=== PATIENT | male | born 1975 | race Caucasian/White ===

== ENCOUNTER 2016-07-27 15:04 | Emergency (ER) | payer MEDICAID, OTHER ==
--- NOTE | 2016-07-27 15:55 | C.PDOC ---
History Of Present Illness 41 y/o male presents to the ED with complains of left knee pain. Pt states he was moving furniture yesterday and has since had knee pain, 6/10 with associated swelling. Denies trauma or injury. Patient took motrin this morning with minimal relief. Denies headache, fever, chills, weakness, numbness or any other complaints. Time Seen by Provider: 07/27/16 15:36 Chief Complaint (Nursing): Lower Extremity Problem/Injury History Per: Patient History/Exam Limitations: no limitations Onset/Duration Of Symptoms: Hrs Current Symptoms Are (Timing): Still Present Severity: Moderate Pain Scale Rating Of: 6 Recent travel outside of the [place]: No - Knee Alleviating Factor(s): OTC Pain Medication Past Medical History Reviewed: Historical Data, Nursing Documentation, Vital Signs - Medical History PMH: Asthma, Diabetes - [facility] Procedures OTHER SKIN & SUBQ I D (10/17/14) Family History: States: Unknown Family Hx - Social History Hx Tobacco Use: No Hx Alcohol Use: No Hx Substance Use: No - Immunization History Hx Tetanus Toxoid Vaccination: No Hx Influenza Vaccination: Yes Hx Pneumococcal Vaccination: No Review Of Systems Except As Marked, All Systems Reviewed And Found Negative. Constitutional: Negative for: Fever, Chills Musculoskeletal: Positive for: Other (left knee pain and swelling) Neurological: Negative for: Weakness, Numbness, Headache Physical Exam - Physical Exam Appears: Non-toxic, No Acute Distress Skin: Warm, Dry, No Rash Head: Atraumatic, Normacephalic Extremity: Normal ROM, Tenderness (mild tenderness to medial aspect left knee), Capillary Refill (<2 seconds), No Deformity, Other (walking with limp) Neurological/Psych: Oriented x3, Normal Motor, Normal Sensation Medical Decision Making Medical Decision Making: No indication or fracture or dislocation. Gave motrin, tylenol and work note. Disposition Counseled Patient/Family Regarding: Diagnosis, Need For Followup, Rx Given - Disposition Disposition: HOME/ ROUTINE Disposition Time: 15:53 Condition: STABLE Instructions: [facility] (ED) Forms: General Discharge Instructions, Work Excuse - POA Present On Arrival: None - Clinical Impression Clinical Impression: Joint pain, Left knee sprain - Scribe Statement The provider has reviewed the documentation as recorded by the Pollo Skinner Provider Attestation: All medical record entries made by the Scribe were at my direction and personally dictated by me. I have reviewed the chart and agree that the record accurately reflects my personal performance of the history, physical exam, medical decision making, and the department course for this patient. I have also personally directed, reviewed, and agree with the discharge instructions and disposition.
== END 2016-07-27 16:00 | disposition home or self-care (01) ==
LOC: C.ER 15:04
DX: S83.92XA Sprain of unspecified site of left knee, initial encounter (principal); X58.XXXA Exposure to other specified factors, initial encounter; M25.562 Pain in left knee

== ENCOUNTER 2016-07-29 12:09 | Emergency (ER) | payer OTHER ==
[2016-07-29 13:03] VITALS: BMI 32.4
[2016-07-29 13:04] VITALS: RESP 18
--- NOTE | 2016-07-29 13:59 | C.PDOC ---
History Of Present Illness A 41 year old male presents to the ER c/o left knee pain that occurred 3 days ago. Patient reports lifting heavy objects, twisting motion to his knee and felt pain afterwards. Patient notes taking medications for the pain this morning. Pain worsens with movement. Patient denies nausea, fever, vomiting, change in sensation or weakness, calf tenderness, direct trauma, or any other complaints. Time Seen by Provider: 07/29/16 13:03 Chief Complaint (Nursing): Lower Extremity Problem/Injury History Per: Patient History/Exam Limitations: no limitations Onset/Duration Of Symptoms: Days Current Symptoms Are (Timing): Still Present Severity: Mild Additional History Per: Patient - Knee Description Of Injury: Other (Lifting heavy object) Past Medical History Reviewed: Historical Data, Nursing Documentation, Vital Signs Vital Signs: Last Vital Signs Temp 98.1 F 07/29/16 13:03 Pulse 76 07/29/16 13:03 Resp 18 07/29/16 13:03 BP 133/71 07/29/16 13:03 Pulse Ox 98 07/29/16 14:06 - Medical History PMH: Asthma, Diabetes - [facility] Procedures OTHER SKIN & SUBQ I D (10/17/14) Family History: States: Unknown Family Hx - Social History Hx Tobacco Use: No Hx Alcohol Use: No Hx Substance Use: No - Immunization History Hx Tetanus Toxoid Vaccination: No Hx Influenza Vaccination: No Hx Pneumococcal Vaccination: No Review Of Systems Except As Marked, All Systems Reviewed And Found Negative. Constitutional: Negative for: Fever, Chills Gastrointestinal: Negative for: Nausea, Vomiting Musculoskeletal: Positive for: Leg Pain (Left knee pain) Neurological: Negative for: Weakness (left lower extremity), Numbness (left lower extremity) Physical Exam - Physical Exam Appears: Non-toxic, No Acute Distress Skin: Warm, Dry Head: Atraumatic, Normacephalic Eye(s): bilateral: Normal Inspection, EOMI Nose: Normal Oral Mucosa: Moist Chest: Symmetrical Respiratory: No Accessory Muscle Use Extremity: Normal ROM (FROM though exacerbated pain), Tenderness (Medial tenderness along the left meniscus), No Calf Tenderness, Capillary Refill, Swelling Extremity: Bilateral: Atraumatic, Normal Color And Temperature Pulses: Left Dorsalis Pedis: Normal, Right Dorsalis Pedis: Normal Neurological/Psych: Oriented x3, Normal Speech, Normal Motor (Good knee strength ), Normal Sensation ED Course And Treatment O2 Sat by Pulse Oximetry: 98 (RA) Pulse Ox Interpretation: Normal Progress Note: Plans: X-Ray of the left knee, reassess and disposition. Knee brace applied by net technical architect. On reassessment, patient is resting comfortably, with improvement of left knee pain. Patient remains afebrile, with no extremity numbness or weakness. Patient is ambulatory in the emergency department with no signs of discomfort. Patient was advised to follow up with physician/clinic in 1 -2 days. Disposition - Disposition Referrals: [facility] [Outside] [facility] [Outside] Byron Candelaria MD [Staff Provider] - Disposition: HOME/ ROUTINE Disposition Time: 14:16 Condition: STABLE Additional Instructions: Rest, ice and elevate the area. Follow up with the clinic in 2-5 days for further evaluation. Take medications as prescribed. Return to the emergency department at any time if symptoms persist or worsen. [facility] may [facility] for [facility] assistance [phone]. Prescriptions: Naproxen [Naprosyn] 1 tab PO BID PRN #20 tab PRN Reason: Pain Instructions: Knee Sprain (ED) - Clinical Impression Clinical Impression: Left knee sprain - Scribe Statement The provider has reviewed the documentation as recorded by the Scribe Heraclio devries All medical record entries made by the Scribe were at my direction and personally dictated by me. I have reviewed the chart and agree that the record accurately reflects my personal performance of the history, physical exam, medical decision making, and the department course for this patient. I have also personally directed, reviewed, and agree with the discharge instructions and disposition.
[2016-07-29 14:45] VITALS: BP 107/70; PULSE 66; TEMP 97.8; O2SAT 99
--- NOTE | 2016-07-29 17:13 | RAD ---
PROCEDURE: Left Knee Radiographs. HISTORY: COMPARISON: None available FINDINGS: BONES: No acute displaced fracture. JOINTS: No dislocation. JOINT EFFUSION: No significant joint effusion. OTHER FINDINGS: None. IMPRESSION: No acute displaced fracture, dislocation, or significant joint effusion identified. If symptoms persist, or if there is continued clinical concern, x-ray follow-up in 7-10 days should be considered.
== END 2016-07-29 14:45 | disposition home or self-care (01) ==
LOC: C.ER 12:09
DX: S83.92XA Sprain of unspecified site of left knee, initial encounter (principal); X50.1XXA Overexertion from prolonged static or awkward postures, initial encounter; Y93.89 Activity, other specified; Y92.9 Unspecified place or not applicable

== ENCOUNTER 2017-06-27 21:14 | Emergency (ER) | payer OTHER ==
[2017-06-27 21:15] VITALS: BMI 32.4
[2017-06-27 21:28] VITALS: BP 175/75; PULSE 97; RESP 18; TEMP 98.1; O2SAT 100
--- NOTE | 2017-06-27 21:50 | C.PDOC ---
History Of Present Illness [id number] male presents to ED for complaints of biting the left side of his tongue approximately [employer]. Patient states he sustained a laceration that was continuously bleeding and he could not control at home; however, the bleeding currently stopped. Patient denies other injuries, chocking SOB, or throat pain. Time Seen by Provider: 06/27/17 21:34 Chief Complaint (Nursing): Dental Pain History Per: Patient History/Exam Limitations: no limitations Onset/Duration Of Symptoms: Hrs Current Symptoms Are (Timing): Still Present Recent travel outside of the [place]: No Past Medical History Reviewed: Historical Data, Nursing Documentation, Vital Signs Vital Signs: Last Vital Signs Temp 98.1 F 06/27/17 21:25 Pulse 97 H 06/27/17 21:25 Resp 18 06/27/17 21:25 BP 175/75 H 06/27/17 21:25 Pulse Ox 100 06/27/17 23:57 - Medical History PMH: Asthma, Diabetes - [facility] Procedures OTHER SKIN & SUBQ I D (10/17/14) Family History: States: Unknown Family Hx - Social History Hx Tobacco Use: No Hx Alcohol Use: No Hx Substance Use: No - Immunization History Hx Tetanus Toxoid Vaccination: No Hx Influenza Vaccination: No Hx Pneumococcal Vaccination: No Review Of Systems Constitutional: Negative for: Fever, Chills, Other (other injuries) ENT: Positive for: Other (Left sided laceration of tongue). Negative for: Throat Pain Respiratory: Negative for: Shortness of Breath Gastrointestinal: Negative for: Nausea, Vomiting, Diarrhea Neurological: Negative for: Weakness, Numbness Physical Exam - Physical Exam Appears: Non-toxic, No Acute Distress Skin: Warm, Dry, No Rash Head: Atraumatic, Normacephalic Eye(s): bilateral: Normal Inspection Oral Mucosa: Moist Tongue: No Swelling, Laceration (0.5cm to the left side of tongue), No Bleeding Throat: No Erythema, No Exudate Neck: Normal ROM, Supple Chest: Symmetrical, No Tenderness Cardiovascular: Rhythm Regular, No Friction Rub, No Murmur Respiratory: No Decreased Breath Sounds, No Rales, No Rhonchi, No Wheezing Gastrointestinal/Abdominal: Soft, No Tenderness Back: Normal Inspection, No CVA Tenderness Extremity: Normal ROM, No Swelling Neurological/Psych: Oriented x3, Normal Speech, Normal Cognition Gait: Steady ED Course And Treatment O2 Sat by Pulse Oximetry: 100 (RA) Pulse Ox Interpretation: Normal Medical Decision Making Medical Decision Making: Wound cleansed with Saline. No need for suture repair at this time as there was no active bleeding. Disposition - Disposition Referrals: Non [facility] Provider, [Primary Care Provider] - Disposition: HOME/ ROUTINE Disposition Time: 21:47 Condition: GOOD Additional Instructions: Return if worsened. Instructions: Wound Care Forms: [facility] (Arabic) - Clinical Impression Clinical Impression: Tongue laceration - PA / [employer] / Resident Statement MD/DO has reviewed & agrees with the documentation as recorded. - Scribe Statement The provider has reviewed the documentation as recorded by the Scribe Jagjit Villa All medical record entries made by the Scribe were at my direction and personally dictated by me. I have reviewed the chart and agree that the record accurately reflects my personal performance of the history, physical exam, medical decision making, and the department course for this patient. I have also personally directed, reviewed, and agree with the discharge instructions and disposition.
== END 2017-06-27 21:55 | disposition home or self-care (01) ==
LOC: C.ER 21:14 → SUPCPDRO 21:14 → C.ER 21:55
DX: S01.512A Laceration without foreign body of oral cavity, initial encounter (principal); X58.XXXA Exposure to other specified factors, initial encounter; Y92.9 Unspecified place or not applicable